=== PATIENT | female | born 1990 | race Two or more races ===

== ENCOUNTER 2018-04-12 07:23 | Emergency (ER) | payer MEDICAID, OTHER ==
[~2018-04-12] VITALS: Ht 157.5 cm; Wt 70.3 kg
[2018-04-12 07:45] VITALS: BP 136/95
== END 2018-04-12 08:32 | disposition home or self-care (01) ==
LOC: ER 07:23
DX: S09.90XA Unspecified injury of head, initial encounter (principal); W01.198A Fall on same level from slipping, tripping and stumbling with subsequent striking against other object, initial encounter; Y93.89 Activity, other specified; Y99.8 Other external cause status; Y92.89 Other specified places as the place of occurrence of the external cause
CPT/HCPCS: 70450